=== PATIENT | male | born 1940 | race Caucasian/White ===

== ENCOUNTER → 2017-10-10 | Outpatient (CLI) | payer OTHER | END | disposition home or self-care (01) | LOC: ECHO 07:26 | DX: I25.10 Atherosclerotic heart disease of native coronary artery without angina pectoris (principal); I10 Essential (primary) hypertension; Z95.1 Presence of aortocoronary bypass graft | CPT/HCPCS: 93306 ==

== ENCOUNTER → 2019-01-26 | Outpatient (CLI) | payer OTHER ==
[2013-12-20 14:45] VITALS: BP 124/63
[~2019-01-26] MED LIST: ASPI-630 PO; ASPI325T11 PO; ASPI325T8 PO; ATEN25TA PO; ESOM40CA PO; ESOM40CA25 PO; EXEN2PEN SQ; FEXO180T81 PO; GLYB5TAB3 PO; HUM100VI5 SQ; LIPITOR80 MG PO; LIRA0.6P2 SQ; LISI-334 PO; METF1000 PO; METO25TA2 PO; NAPR-514 PO; NAPR-683 PO; POTA20TA4 PO
[2019-01-26 13:12] LABS: BILIRUBIN,URINE NEGATIVE (NEG); CLARITY,URINE CLEAR; COLOR,URINE YELLOW; NITRITE,URINE NEGATIVE (NEG); PH,URINE 7.5; PROTEIN,URINE 30 mg/dL (NEG-TRACE)
[2019-01-26 13:16] LABS: BASO # 0.1 x10^3/uL (0.0-0.2); BASO % 1 % (0-3); EOS # 0.3 x10^3/uL (0.0-0.7); EOS % 3 % (0-3); HEMATOCRIT 43.1 % (39.0-53.0); HEMOGLOBIN 13.9 g/dL (13.0-17.5); LYMPH # 2.8 x10^3/uL (1.0-4.8); LYMPH % 28 % (24-48); MEAN CORPUSCULAR HEMOGLOBIN 26 pg (25-35); MEAN CORPUSCULAR HGB CONC 32 g/dL (31-37); MEAN CORPUSCULAR VOLUME 80 fL (79-100); MONO % 10 % (0-9); NEUT # 5.8 x10^3/uL (1.8-7.7); NEUT % 59 % (31-73); PLATELET COUNT 244 x10^3/uL (140-400); RED BLOOD COUNT 5.42 x10^6/uL (4.30-5.70); RED CELL DISTRIBUTION WIDTH 17.5 % (11.5-14.5)
[2019-01-26 13:28] LABS: ALBUMIN 3.7 g/dL (3.4-5.0); CALCIUM 9.5 mg/dL (8.5-10.1); CREATININE 1.4 mg/dL (0.7-1.3); POTASSIUM 4.4 mmol/L (3.5-5.1); PROTHROMBIN TIME PATIENT 13.9 SEC (11.7-14.0)
[2019-01-26 13:49] LABS: BACTERIA,URINE 0 /HPF (0-FEW); HYALINE CASTS, URINE MODERATE /HPF; SQUAMOUS EPITHELIAL CELL,UR FEW /LPF; WBC,URINE OCC /HPF (0-4)
--- NOTE | 2019-01-26 15:21 | RAD ---
EXAM: Chest, 2 views. HISTORY: Preoperative evaluation. CABG. COMPARISON: None. FINDINGS: Tumor views of the chest are obtained. There is mild diffuse increased additional opacity due to chronic interstitial change. There may be superimposed atelectasis. There is no rebeca congestion. There is no consolidation, pleural effusion or pneumothorax. There is evidence of prior CABG. There is a left shoulder arthroplasty. IMPRESSION: Suspected chronic interstitial changes with superimposed atelectasis. There is no rebeca congestion or consolidated infiltrate. Electronically signed by: Farheen Benitez MD (01/26/2019 3:18 PM) [place] [id number]
[2019-01-27 01:13] LABS: HEMOGLOBIN A1C 7.5 % (4.8-5.6)
== END | disposition home or self-care (01) ==
LOC: SURGPAT 12:20
PROVIDERS: ATTEND Orthopaedic Surgery
DX: Z01.818 Encounter for other preprocedural examination (principal); M65.312 Trigger thumb, left thumb; M65.342 Trigger finger, left ring finger; Z88.8 Allergy status to other drugs, medicaments and biological substances; Z88.5 Allergy status to narcotic agent; Z98.890 Other specified postprocedural states
CPT/HCPCS: 36415; 71046; 80048; 81001; 82040; 82306; 83036; 85025; 85610; 85651; 85730; 87641

== ENCOUNTER → 2019-01-31 | Outpatient (CLI) | payer OTHER ==
[2013-12-20 14:45] VITALS: BP 124/63
--- NOTE | 2019-01-31 12:54 | CARD ---
MR#: [id number] Date of Study: 01/31/2019 Ordering Physician: SEAN JUAREZ, Referring Physician: SEAN JUAREZ, Toby: Monique Fisher APPROVED REPORT EXAM: Two-dimensional and M-mode echocardiogram with Doppler and color Doppler. Other Information Quality : AverageHR: 81bpm INDICATION Pre-Op CAD 2D DIMENSIONS RVDd3.4 (2.9-3.5cm)Left Atrium(2D)3.9 (1.6-4.0cm) IVSd1.2 (0.7-1.1cm)Aortic Root(2D)2.7 (2.0-3.7cm) LVDd4.2 (3.9-5.9cm)LVOT Diameter2.5 (1.8-2.4cm) PWd1.3 (0.7-1.1cm)IVSs1.3 (0.8-1.2cm) LVDs2.9 (2.5-4.0cm)FS (%) 31.6 % SV46.9 mlLVEF(%)59.9 (>50%) Aortic Valve AoV Peak Orion.134.8cm/sAoV VTI28.7cm AO Peak GR.7.3mmHgLVOT Peak Orion.93.9cm/s LVOT VTI 19.67cmAO Mean GR.5mmHg DELMER (VMAX)2.21ql2FHB (VTI)3.35cm2 Mitral Valve MV E Ufzbumcs91.4cm/sMV DECEL [id number] MV A Wxcgfaam719.1cm/sMV GVY09bt E/A Ratio0.7MVA (PHT)2.70cm2 TDI E/Lateral E'9.5E/Medial E'8.6 Pulmonary Valve PV Peak Lyktivyl329.8cm/sPV Peak Grad.5mmHg Pulmonary Vein S1 Wookxtjh15.9cm/sD2 Acafrlvh34.8cm/s PVa hbvmwloh260tept LEFT VENTRICLE The left ventricle is normal size. There is mild concentric left ventricular hypertrophy. The left ve ntricular systolic function is normal and the ejection fraction is within normal range. The Ejection Fraction is 55-60%. There is normal LV segmental wall motion. Transmitral Doppler flow pattern is Gra de I-abnormal relaxation pattern. RIGHT VENTRICLE The right ventricle is normal size. There is normal right ventricular wall thickness. The right ventr icular systolic function is normal. ATRIA The left atrium size is normal. The right atrium size is normal. The interatrial septum is intact wit h no evidence for an atrial septal defect or patent foramen ovale as noted on 2-D or Doppler imaging. AORTIC VALVE The aortic valve is calcified but opens well. Doppler and Color Flow revealed no significant aortic r egurgitation. There is no significant aortic valvular stenosis. MITRAL VALVE The mitral valve is thickened but opens well. Mitral annular calcification is mild. There is no sanjuana l valve stenosis. Doppler and Color-flow revealed trace to mild mitral regurgitation. TRICUSPID VALVE The tricuspid valve is not well visualized. Doppler and Color Flow revealed trace tricuspid regurgita tion. There is no tricuspid valve stenosis. PULMONIC VALVE The pulmonic valve is not well visualized. Doppler and Color Flow revealed trace pulmonic valvular re gurgitation. GREAT VESSELS The aortic root is normal in size. The ascending aorta is normal in size. The IVC is normal in size a nd collapses >50% with inspiration. PERICARDIAL EFFUSION There is no pleural effusion. There is no evidence of significant pericardial effusion. Critical Notification Critical Value: No <Conclusion> The left ventricle is normal size. The left ventricular systolic function is normal and the ejection fraction is within normal range. The Ejection Fraction is 55-60%. There is mild concentric left ventricular hypertrophy. There is no significant aortic valvular stenosis. Doppler and Color Flow revealed no significant aortic regurgitation. Doppler and Color-flow revealed trace to mild mitral regurgitation. Doppler and Color Flow revealed trace tricuspid regurgitation. Signed by : Sean Juarez MD Electronically Approved : 01/31/2019 12:53:33
== END | disposition home or self-care (01) ==
LOC: ECHO 10:03
PROVIDERS: ATTEND Internal Medicine Cardiovascular Disease
DX: Z01.818 Encounter for other preprocedural examination (principal); I08.0 Rheumatic disorders of both mitral and aortic valves; I25.810 Atherosclerosis of coronary artery bypass graft(s) without angina pectoris
CPT/HCPCS: 93306

== ENCOUNTER 2019-02-06 10:49 | Inpatient (IN) | payer OTHER ==
[~2019-02-06] VITALS: Ht 172.7 cm; Wt 138.3 kg
[2019-02-06] VITALS (7 sets, daily range): BP systolic 106–133; BP diastolic 66–80
[~2019-02-06 10:49] MED LIST changes: +ACETAMINOPHEN 500 MG TABLET PO PRN; +GABAPENTIN 300 MG CAPSULE. PO PRN; +IV RINGERS,LACTATED 1000ML 1,000 ML IV SCH; +LIDOCAINE 1% PF 2 ML VIAL. ID PRN; +MELOXICAM 7.5 MG TABLET PO PRN; +ONDANSETRON PF 4 MG/2 ML VIAL. IV PRN; +PROCHLORPERAZINE 10 MG/2 ML VIAL. IV PRN; +TRANEXAMIC ACID 1,000 MG in IV NS 50ML -- 1ST BAG INJ ONE; +TRANEXAMIC ACID 1,000 MG in IV NS 50ML -- 2ND BAG INJ ONE; +fentaNYL PF VIAL 100 MCG/2 ML VIAL IV PRN
[2019-02-06] MEDS ORDERED: FAMOTIDINE 20 MG/2 ML VIAL ONE (11:49)
[2019-02-06] MEDS ORDERED: LIDOCAINE 2% PF 5 ML VIAL. ONE (11:49)
[2019-02-06] MEDS ORDERED: PROPOFOL 20 ML IV ONE (11:49)
[2019-02-06] MEDS ORDERED: DEXAMETHASONE SOD PHOS 4 MG/ML VIAL ONE (11:49)
[2019-02-06] MEDS ORDERED: ONDANSETRON PF 4 MG/2 ML VIAL. ONE (11:49)
[2019-02-06] MEDS ORDERED: fentaNYL PF VIAL 100 MCG/2 ML VIAL ONE (11:50)
--- NOTE | 2019-02-06 11:58 | HP ---
ADMIT DATE: 02/06/2019 CHIEF COMPLAINT: Left shoulder pain and left triggering fingers. HISTORY OF PRESENT ILLNESS: The patient is a 78-year-old male that had a reverse total shoulder done at [facility], probably about [address] 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 PAST MEDICAL HISTORY: Significant for heart disease, type 2 diabetes. PAST SURGICAL HISTORY: Left knee replacement, back surgery, right knee replacement, left knee in 1995, right knee in 2004, back surgery in 1999, open heart in 2008, appendix surgery remotely, gallbladder surgery in 1967, left rotator cuff surgery in 1990 and the reverse shoulder arthroplasty in about 2014. FAMILY HISTORY: Heart disease in his mother, diabetes in his father, has several relatives and children that are healthy. SOCIAL HISTORY: He is a former smoker, quit over 5 years ago. He is , lives with spouse. Denies alcohol or drug use. MEDICATIONS: List is reviewed. ALLERGIES: INCLUDE MORPHINE AND CODEINE. REVIEW OF SYSTEMS: Significant for the left shoulder pain, the triggering in the thumb, ring finger and one of the ring finger of his contralateral right hand, less severely. HEENT: Atraumatic, normocephalic. HEART: Regular rate and rhythm. LUNGS: Clear to auscultation bilaterally. ABDOMEN: Benign and obese. EXTREMITIES: Examination of the left shoulder reveals forward flexion to about 120 degrees with pain, abduction to a little less than shoulder height, better on the right side. Normal parascapular motion bilaterally. He has pain and weakness with elevation and is weak on a belly press test as well. He has triggering on the thumb and ring finger on the left side, ring finger on the right. IMAGING: X-rays show a loose glenosphere component with broken hardware, screw hardware fixation on the left shoulder, humeral stem appears intact. IMPRESSION: 1. History of left reverse shoulder arthroplasty. 2. Loose glenoid component and shoulder pain. 3. Left hand trigger thumb and trigger ring finger. TREATMENT PLAN: I had gone over with him in clinic and reviewed with him today risks, benefits, postoperative course of the revision procedure on his shoulder likely revising the glenoid and rebalancing the shoulder. I described how the hardware is broken because it never healed into the bone and described the revision procedure and recovery process as well as the possible risk factors of infection, nerve or blood vessel damage, medical or other anesthetic complications among others including continued pain and weakness and motion deficits. All his questions were answered and he wishes to proceed with surgical evaluation and treatment of the revision with shoulder arthroplasty as well as trigger finger release of the left thumb and left ring finger with [facility] admission to follow. TAYE MAZARIEGOS MD DR: HANNAH/nts JOB#: [id number] / [id number]
[2019-02-06] MEDS ORDERED: INSULIN LISPRO 100 UNIT/ML 3ML VIAL for OP,RR ONLY. SQ PRN (12:45)
[2019-02-06] MEDS ORDERED: ROPIVacaine 0.5% PF 20 ML VIAL. ONE (13:01)
[2019-02-06 13:35] LABS: PROTHROMBIN TIME PATIENT 13.6 SEC (11.7-14.0)
[2019-02-06] MEDS: IV DEXTROSE 5 %-0.45 % NACL 1,000 ML IV SCH ×2 (13:37→22:00)
[2019-02-06] MEDS ORDERED: IV NORMAL SALINE 1000ML BAG 1,000 ML IV SCH (13:37)
[2019-02-06] MEDS ORDERED: ZOLPIDEM 5 MG TABLET. PO PRN (13:45)
[2019-02-06] MEDS ORDERED: PROCHLORPERAZINE 5 MG TABLET. PO PRN (13:45)
[2019-02-06] MEDS ORDERED: NALOXONE 0.4 MG/ML VIAL. IV PRN (13:45)
[2019-02-06] MEDS ORDERED: ACETAMINOPHEN 325 MG TABLET. PO PRN (13:45)
[2019-02-06] MEDS ORDERED: CALCIUM CARBONATE 500 MG TAB.CHEW PO PRN (13:45)
[2019-02-06] MEDS ORDERED: oxyCODONE/APAP 7.5/325 1 TAB TABLET PO PRN (13:45)
[2019-02-06] MEDS ORDERED: DEXTROSE 50% 25 GM / 50ML DISP.SYRIN. IV PRN (13:45)
[2019-02-06] MEDS ORDERED: traMADol 50 MG TABLET PO PRN ×2 (13:45)
[2019-02-06] MEDS ORDERED: HYDROmorphone 2 MG/ML VIAL IV PRN (13:45)
[2019-02-06] MEDS ORDERED: 0.9 % SODIUM CHLORIDE 10 ML DISP.SYRIN. IV PRN (13:45)
[2019-02-06] MEDS ORDERED: HYDROcodone/APAP 10/325 1 TAB TABLET PO PRN (13:45)
[2019-02-06] MEDS: POTASSIUM CHLORIDE 20 MEQ TABLET.ER. PO SCH (14:00)
[2019-02-06] MEDS ORDERED: ceFAZolin SODIUM 1 GM VIAL ONE (14:35)
[2019-02-06] MEDS ORDERED: KETAMINE HCL IN NACL, ISO-OSM 50 MG/5 ML SYRINGE ONE (14:37)
[2019-02-06] MEDS ORDERED: SEVOFLURANE > 120 MINUTES. IH ONE (15:37)
[2019-02-06] MEDS ORDERED: ceFAZolin 2GM PREMIX 2 GM/50 ML BAG IV ONE (16:00)
[2019-02-06] MEDS ORDERED: VANCOMYCIN 1 GM VIAL. ONE ×2 (16:12→16:13)
[2019-02-06] MEDS ORDERED: NEOSTIGMINE METHYLSULFATE 5 MG/5 ML SYRINGE. ONE (16:17)
[2019-02-06] MEDS ORDERED: GLYCOPYRROLATE 1 MG/5 ML VIAL. ONE (16:17)
[2019-02-06] MEDS ORDERED: VANCOMYCIN 1 GM VIAL. TP ONE (16:17)
[2019-02-06] MEDS ORDERED: PHENYLEPHRINE in 0.9% NACL PF 1 MG/10 ML SYRINGE. IV ONE (16:30)
[2019-02-06] MEDS ORDERED: PHENYLEPHRINE 10 MG/ML VIAL. ONE (16:30)
[2019-02-06] MEDS ORDERED: ePHEDrine PF IN SALINE 50 MG/10 ML SYRINGE. IV ONE (16:30)
--- NOTE | 2019-02-06 17:22 | PDOC4 ---
Operative Note Operative Note Date of surgery: 02/06/2019 Preoperative diagnosis: Loose glenoid component left reverse shoulder arthroplasty, trigger fingers left thumb and ring finger Postoperative diagnosis: Same with gross motion and instability, triggering left thumb and ring finger Operative procedure: Revision glenoid component left reverse shoulder arthroplasty and rebalancing, left thumb and ring trigger finger release Surgeon: Leslie Assist: Kosta Palma nurse practitioner Anesthesia: Gen. plus scalene block Estimated blood loss: 150 mL Complications: None Operative indications: Please see my clinic and preoperative history and physical for details operative indications and note that we are revising the left shoulder for instability of the glenoid component as the hardware appears loose and screws broken resulting in shoulder pain and weakness. He also has trigger fingers of the left thumb and ring finger. I explained the risks of each including the possibility of nerve or blood vessel damage weakness instability infection continued pain medical or anesthetic complications among others and he agrees to proceed with surgical evaluation and treatment and will undergo joint center admission to follow Operative text: Patient was identified procedure verified patient placed in the supine position on the operating table. After adequate amounts of general anesthesia plus a pre-existing scalene block were obtained he was placed in the beachchair position with the Tmax head rest all bony prominences were well positioned and padded and the left upper extremity was prepped and draped in standard sterile fashion. After timeout was performed patient procedure identified and verified a deltopectoral incision was made and dissection carried out down to the fascia cephalic vein was not visualized however the scarred interval between the deltoid and pectoralis was exploited and dissection carried out down to the shoulder joint. The glenoid component appeared to be grossly loose and the humeral stem well fixed the Tan taper was disengaged from the humeral stem and the humeral component was noted to have significant wear of the polyethylene at its inferior surface impinging on the inferior aspect of the scapular bone and undersurface of glenoid. The glenoid component was likewise grossly loose and appeared to only be attached with some scar/fibrous tissue and the broken screws were actually quite deep in the glenoid bone and I judged that removal of those would cause more destruction and glenoid bony deficit than any benefit obtained. There was no sign of infection thorough irrigation carried out normal saline solution and revision of the glenoid to the comprehensive glenoid system was carried out by thoroughly debriding any scar tissue from the area. A central guidewire was advanced in about 10 of declination and reaming was carried out over the guidewire and any resulting bone graft was saved. Excellent bleeding bone was noted after the reaming process and desired slight declination and solid glenoid bone was obtained. The comprehensive 28 mm glenoid baseplate was impacted into place. An excellent 35 mm length central glenoid screw provided excellent fixation and nonlocking angle screws were placed down the scapular spine and up angled toward the base of the coracoid as well both obtaining excellent fixation. A size 40+3 lateral offset Sabine here was impa cted in place to engage the Tan taper and a comprehensive mini humeral baseplate was placed to allow communication with the comprehensive +0 standard offset humeral component which was impacted again to engage the Tan taper and reduced with a good combination of full motion and stability in all planes. Thorough irrigation carried out normal saline solution 1 g of powdered vanco mycin was placed in the joint and closure accomplished with buried Vicryl suture subcuticular 30 strata fix Monocryl and sterile dressings were applied. Attention was then turned to the trigger thumb and ring finger on the left hand and incisions were made at the distal palmar crease over the ring flexor tendon and the A1 austin was released under direct visualization protecting the neurovascular structures likewise a small transverse incision was made at the base of the thumb and A1 austin was likewise released eliminating the triggering in both the thumb and ring fingers. Thorough irrigation carried out normal saline solution closure accomplished with nylon suture in a mattress fashion sterile dressings were applied to the hand and patient was returned recovery room in stable condition having tolerated procedure well. Kosta Palma nurse practitioner was present for the case and assisted in the positioning prepping draping retraction and skin closure TAYE MAZARIEGOS MD Feb 06, 2019 17:22
[2019-02-06] MEDS: FERROUS SULFATE 325 MG TABLET. PO SCH (18:00)
--- NOTE | 2019-02-06 18:38 | NUR ---
The patient arrived to the floor from PACU around 1805. Patient is able to respond to simple commands but unable to hold a conversation at this time. Vital signs stable. Family present and they left shortly after the patient arrived since he was sleeping. Dressing to shoulder and hand dry/intact with sling in place. IV infusing properly in right AC and right hand IV saline locked/capped. Patient is on 2L oxygen per [place].
--- NOTE | 2019-02-06 19:02 | RAD ---
Two-view left shoulder dated 02/06/2019. Comparison made to 12/18/2018. Clinical data indication: Postop shoulder arthroplasty. FINDINGS: 2 views of left shoulder show interval total shoulder arthroplasty. Humeral and glenoid components are intact. No periprosthetic fracture or malalignment. There are postoperative changes of the distal clavicle. IMPRESSION: Status post left shoulder arthroplasty. Electronically signed by: Gaurav Grover MD (02/06/2019 6:59 PM) [facility]
[2019-02-06] MEDS: ATORVASTATIN CALCIUM 40 MG TABLET. PO SCH (20:41)
[2019-02-06] MEDS: CELECOXIB 100 MG CAPSULE. PO SCH (20:42)
[2019-02-06] MEDS: INSULIN NPH/REG INSULIN 70/30 300 UNITS/3 ML INSULN.PEN. SQ SCH (20:43)
[2019-02-06] MEDS: ceFAZolin SODIUM 3 GM in IV DEXTROSE 5% 100ML 100 ML IV SCH (22:00)
[2019-02-06] MEDS: HYDROcodone/APAP 7.5/325MG 1 TAB TABLET PO PRN (22:58)
[2019-02-07 03:01] VITALS: BP 94/62
[2019-02-07] MEDS: ceFAZolin SODIUM 3 GM in IV DEXTROSE 5% 100ML 100 ML IV SCH ×2 (04:06→10:01)
[2019-02-07 05:08] LABS: HEMATOCRIT 39.8 % (39.0-53.0); HEMOGLOBIN 12.6 g/dL (13.0-17.5)
[2019-02-07] MEDS: HYDROcodone/APAP 7.5/325MG 1 TAB TABLET PO PRN (05:14)
[2019-02-07] MEDS ORDERED: MAGNESIUM HYDROXIDE 2,400 MG/30 ML ORAL.SUSP. PO PRN (06:00)
[2019-02-07 06:04] VITALS: BP 105/66
[2019-02-07] MEDS: PANTOPRAZOLE 40 MG TABLET.DR. PO SCH (07:27)
--- NOTE | 2019-02-07 07:33 | PDOC ---
ORTHO PROGRESS NOTES Subjective Patient with no complaint of pain and states that left hand feels better already. Post-op Day: 1 Procedure 1. Revision and rebalance of left Total shoulder reverse arthroplasty. 2. Trigger finger release left thumb and ring finger Vitals Vital Signs Date Time Temp Pulse Resp B/P (MAP) Pulse Ox O2 Delivery O2 Flow Rate FiO2 02/07/19 06:25 18 95 Nasal Cannula 2.0 02/07/19 06:04 97.9 104 105/66 (79) 97.9 Labs Laboratory Tests Test 02/06/19 12:08 02/06/19 12:10 02/06/19 13:41 02/06/19 17:38 Glucose (Fingerstick) 117 mg/dL (70-99) 98 mg/dL (70-99) 147 mg/dL (70-99) Prothrombin Time 13.6 SEC (11.7-14.0) Prothromb Time International Ratio 1.1 (0.8-1.1) Activated Partial Thromboplast Time 34 SEC (24-38) Test 02/06/19 20:27 02/07/19 04:25 02/07/19 06:22 Glucose (Fingerstick) 193 mg/dL (70-99) 282 mg/dL (70-99) Hemoglobin 12.6 g/dL (13.0-17.5) Hematocrit 39.8 % (39.0-53.0) Mean Corpuscular Hemoglobin Concent 32 g/dL (31-37) Laboratory Tests Test 02/06/19 12:08 02/06/19 12:10 02/06/19 13:41 02/06/19 17:38 Glucose (Fingerstick) 117 mg/dL (70-99) 98 mg/dL (70-99) 147 mg/dL (70-99) Prothrombin Time 13.6 SEC (11.7-14.0) Prothromb Time International Ratio 1.1 (0.8-1.1) Activated Partial Thromboplast Time 34 SEC (24-38) Test 02/06/19 20:27 02/07/19 04:25 02/07/19 06:22 Glucose (Fingerstick) 193 mg/dL (70-99) 282 mg/dL (70-99) Hemoglobin 12.6 g/dL (13.0-17.5) Hematocrit 39.8 % (39.0-53.0) Mean Corpuscular Hemoglobin Concent 32 g/dL (31-37) Notes awake and alert sitting up in bed Assessment and Plan POD # 1 motor and sensation intact distally. moving wrist and fingers well dressings dry and intact PT/OT today BREANA ANDREWS APRN Feb 07, 2019 07:33
[2019-02-07] MEDS: INSULIN NPH/REG INSULIN 70/30 300 UNITS/3 ML INSULN.PEN. SQ SCH ×2 (08:05→16:43)
[2019-02-07] MEDS: ASPIRIN CHEWABLE 81 MG TABLET. PO SCH (08:06)
[2019-02-07] MEDS: SENNOSIDES/DOCUSATE 8.6/50MG TABLET. PO SCH (08:06)
[2019-02-07] MEDS: CELECOXIB 100 MG CAPSULE. PO SCH ×2 (08:06→20:55)
[2019-02-07] MEDS: FERROUS SULFATE 325 MG TABLET. PO SCH ×2 (08:06→16:41)
[2019-02-07] MEDS: MULTIVITAMIN with MINERAL TABLET. PO SCH (08:06)
[2019-02-07] MEDS: POTASSIUM CHLORIDE 20 MEQ TABLET.ER. PO SCH (08:06)
[2019-02-07 08:24] VITALS: BP 94/66
[2019-02-07] MEDS: IV DEXTROSE 5 %-0.45 % NACL 1,000 ML IV SCH ×2 (09:37→19:40)
[2019-02-07] MEDS ORDERED: DEXTROSE 50% 25 GM / 50ML DISP.SYRIN. IV PRN (13:30)
[2019-02-07] MEDS: INSULIN LISPRO 300 UNITS/3 ML VIAL. SQ SCH ×2 (14:00→16:42)
[2019-02-07] MEDS: oxyCODONE/APAP 5/325 1 TAB TABLET PO PRN ×2 (15:21→20:55)
[2019-02-07 15:26] VITALS: BP 121/59
[2019-02-07] MEDS: METOPROLOL SUCC 24HR ER 25 MG TAB.ER.24H. PO SCH (15:28)
[2019-02-07] MEDS ORDERED: BISACODYL 10 MG SUPP.RECT. PR PRN (16:00)
--- NOTE | 2019-02-07 17:33 | NUR ---
original surgical dressing removed. shoulder incision cleansed with chlor prep then Aquacel Ag applied. on his left hand he has 2 incisions- 1 in the palm and 1 in the thumb area. both incisions cleansed with chlor prep then small Telfa islands applied. instructed on dressing changes. jhonathan erickson applied per patient's request. blood pressure was better at 1500 and administered Toprol xl given. lisinopril held. blood sugar remains elevated and initiated sliding scale. remains at bedside
[2019-02-07 19:36] VITALS: BP 125/67
[2019-02-07] MEDS: LISINOPRIL 20 MG TABLET PO SCH (19:58)
--- NOTE | 2019-02-07 19:59 | NUR ---
Lisinopril held at 0900 per day RN. Patient B/P 125/67, pulse 80. Patient declined lisinopril at this time. Patient states "My blood pressure is good."
[2019-02-07] MEDS: ATORVASTATIN CALCIUM 40 MG TABLET. PO SCH (20:55)
[2019-02-08] MEDS: oxyCODONE/APAP 5/325 1 TAB TABLET PO PRN ×3 (03:48→13:53)
[2019-02-08 05:44] LABS: HEMATOCRIT 37.2 % (39.0-53.0); HEMOGLOBIN 11.9 g/dL (13.0-17.5)
[2019-02-08] MEDS: PANTOPRAZOLE 40 MG TABLET.DR. PO SCH (06:09)
[2019-02-08 06:10] VITALS: BP 121/69
[2019-02-08] MEDS: INSULIN LISPRO 300 UNITS/3 ML VIAL. SQ SCH ×2 (08:00→11:21)
[2019-02-08] MEDS ORDERED: OXYC1TAB15 PO (08:01)
[2019-02-08] MEDS: FERROUS SULFATE 325 MG TABLET. PO SCH (08:04)
[2019-02-08] MEDS: POTASSIUM CHLORIDE 20 MEQ TABLET.ER. PO SCH (08:04)
[2019-02-08] MEDS: SENNOSIDES/DOCUSATE 8.6/50MG TABLET. PO SCH (08:04)
[2019-02-08] MEDS: ASPIRIN CHEWABLE 81 MG TABLET. PO SCH (08:04)
[2019-02-08] MEDS: CELECOXIB 100 MG CAPSULE. PO SCH (08:04)
[2019-02-08] MEDS: MULTIVITAMIN with MINERAL TABLET. PO SCH (08:04)
--- NOTE | 2019-02-08 08:04 | SNU/HH DC ---
DISCHARGE WITH HOME HEALTH DISCHARGE INFORMATION: Discharge Date: Feb 08, 2019 Final Diagnosis: s/p reverse shoulder revision, trigger fingers release Condition on Discharge: Stable CODE STATUS: Code Status: Full HOME HEALTH: Face to Face: I certify this patient is under my care and that I, or a nurse practitioner or physician's graphic design assistant working with me, had a face to face encounter that meets the physician face to face encounter requirements with this patient on [02/08/2019]. Medical Complications: S/P Joint Replacement Jail For: Diabetic Care, grant coordinator For Eval/Treatment: Yes Physical Therapy For: Evalulation/Treatment Pt Meets Homebound Status: Limited distance walking POST DISCHARGE ORDERS: Activity Instructions for Disc: Other, see below (strength and stretching of left shoulder, minimal use of sling only as needed) Weight Bearing Status after Di: As tolerated Bathing Instructions: Shower-keep dressing dry DIET AFTER DISCHARGE: ADA Wound/Incision Care: Ice to area for comfort, Do not change dressing FOLLOW-UP: Follow up with: Dr. Nelson 10-14 days CERTIFICATION STATEMENT: Certification Statement: Certification Statement: Based on the above finding, I certify that this patient is confined to the home and needs intermittent fpc care, physical therapy and/or speech therapy, or continues to need occupational therapy.~ This patient is under my care, and I have initiated the establishment of the plan of care.~ This patient will be followed by myself or a community physician who will periodically review the plan of care. Home Meds Reported Medications Exenatide Microspheres (Bydureon Pen) 2 Mg/0.65 Ml Pen.injctr, 2 MG SQ WEEKLY fo r DIABETES, EACH 01/26/19 Hum Insulin Nph/Reg Insulin Hm (NOVOLIN 70-30 100 UNIT/ML VIAL) 100 Unit/1 Ml Vi al, 38 UNIT SQ BID for DIABETES, VIAL 01/26/19 Potassium Chloride (KLOR-CON M20) 20 Meq Tab.er.prt, 20 MEQ PO DAILY for POTASSIUM, TAB.SR 01/26/19 Atorvastatin Calcium (LIPITOR) 80 Mg Tablet, 80 MG PO HS for FOR CHOLESTEROL, #30 TAB 0 Refills 01/26/19 Metoprolol Succinate (TOPROL XL) 25 Mg Tab.er.24h, 25 MG PO DAILY for BP, #30 TAB 0 Refills 01/26/19 Aspirin (ASPIRIN) 81 Mg Tab.chew, 81 MG PO DAILY for HEART, TAB.CHEW 01/26/19 Lisinopril (LISINOPRIL) 20 Mg Tablet, 20 MG PO DAILY for FOR HYPERTENSION, #30 TAB 0 Refills 12/20/13 Esomeprazole Magnesium (NEXIUM CAPSULE) 40 Mg Capsule.dr, 40 MG PO DAILYAC, #30 CAP 0 Refills 12/20/13 Fexofenadine Hcl (CHE ALLERGY) 180 Mg Tablet, 180 MG PO, TAB 09/12/13 TAYE NELSON MD Feb 08, 2019 08:04
[2019-02-08] MEDS: LISINOPRIL 20 MG TABLET PO SCH (08:07)
[2019-02-08] MEDS: METOPROLOL SUCC 24HR ER 25 MG TAB.ER.24H. PO SCH (08:08)
[2019-02-08] MEDS: INSULIN NPH/REG INSULIN 70/30 300 UNITS/3 ML INSULN.PEN. SQ SCH (08:23)
--- NOTE | 2019-02-08 09:08 | DS ---
DATE OF DISCHARGE: 02/08/2019 PRINCIPAL DIAGNOSES: Loose glenosphere reverse shoulder arthroplasty, left and trigger fingers, left thumb and ring fingers. OPERATIVE PROCEDURES: Include revision of reverse total shoulder arthroplasty and left thumb and ring trigger finger releases. DISPOSITION: Home with home health. FOLLOWUP: Dr. Nelosn in 2 weeks. ACTIVITY: Gentle range of motion, strengthening of his left shoulder. Avoid hard grasping and no reaching around behind his back with the operative left arm. Otherwise, physical therapy, home health per reverse shoulder protocol. DISPOSITION MEDICATIONS: Include Percocet 5/325 as needed for pain. Resume home medications. BRIEF DESCRIPTION OF HOSPITAL COURSE: The patient underwent uncomplicated revision of a reverse total shoulder arthroplasty that had a loose glenoid component. Postoperatively, was noted to be functioning a bit better, although sore, likewise was very pleased with his ability to move his hand after release of his trigger fingers. Distal neurovascular status was intact. He went through physical therapy and after demonstrating good performance of his activities and safe performance of his activities of daily living, was discharged to home following his physical therapy session in stable condition. TAYE NELSON MD DR: HANNAH/annie JOB#: [id number] / [id number]
--- NOTE | 2019-02-08 10:00 | NUR ---
Up at billy with steady gait. Independent. Working with OT and PT.
[2019-02-08 13:30] VITALS: BP 125/67
--- NOTE | 2019-02-08 14:15 | NUR ---
Discharge instructions given with prescription. Answered questions and concerns. Both pt and verbalized understanding. Extra dressing given. Going home with home health. Pt discharged home accompanied by spouse.
[2019-02-13] MEDS ORDERED: NON FORMULARY ITEM (Exenatide Microspheres (Bydureon Pen) 2 MG) SQ SCH (09:00)
== END 2019-02-08 14:15 | disposition home health service (06) | DRG 513 ==
LOC: OPSVCIP 10:49 → 4 SOUTHEST 18:05
PROVIDERS: ADMIT Orthopaedic Surgery; ATTEND Orthopaedic Surgery
PROC: 0LN80ZZ Release Left Hand Tendon, Open Approach (ICD-10-PCS; principal; 2019-02-06 13:00)
PROC: 0RWK0JZ Revision of Synthetic Substitute in Left Shoulder Joint, Open Approach (ICD-10-PCS; 2019-02-06 13:00)
DX: T84.038A Mechanical loosening of other internal prosthetic joint, initial encounter (principal); Z68.42 Body mass index [BMI] 45.0-49.9, adult; T84.028A Dislocation of other internal joint prosthesis, initial encounter; M65.342 Trigger finger, left ring finger; Z96.612 Presence of left artificial shoulder joint; M65.312 Trigger thumb, left thumb; E11.9 Type 2 diabetes mellitus without complications; Z96.653 Presence of artificial knee joint, bilateral; Y83.8 Other surgical procedures as the cause of abnormal reaction of the patient, or of later complication, without mention of misadventure at the time of the procedure; Z83.3 Family history of diabetes mellitus; Z82.49 Family history of ischemic heart disease and other diseases of the circulatory system; Z88.5 Allergy status to narcotic agent; Z87.891 Personal history of nicotine dependence; Y92.89 Other specified places as the place of occurrence of the external cause; E66.9 Obesity, unspecified
CPT/HCPCS: 36415; 73030; 82962; 85014; 85018; 85610; 85730; 86850; 86900; 86901; A7015; C1713; C1776; J0171; J0690; J0696; J1100; J1815; J2001; J2370; J2405; J2704; J2710; J2795; J3010; J3370; J3490; J7030; J7120; 97110; 97116; 97530; 97535; C1769; G0378